=== PATIENT | female | born 1985 | race Two or more races ===

== ENCOUNTER 2017-03-30 14:58 | Emergency (ER) | payer SELFPAY ==
[2017-03-30 15:37] VITALS: BP 122/69; PULSE 91; TEMP 98.6; BMI 20.1
[2017-03-30 17:23] LABS: BASOPHIL 0.2 % (0-2.0); EOSINOPHIL 0.7 % (0-4.5); MCHC 31.5 g/dl (32.0-36.0); MEAN PLT VOLUME 9.4 fl (7.5-11.1); NEUTROPHILS 59.1 % (42.8-82.8); RDW 20.8 % (11.6-15.6); WHITE BLOOD COUNT 4.1 K/mm3 (4.0-10.0)
[2017-03-30 17:26] LABS: URINE APPEARANCE CLEAR; URINE BILIRUBIN NEGATIVE (NEGATIVE); URINE BLOOD NEGATIVE (NEGATIVE); URINE COLOR LTYELLOW; URINE GLUCOSE (UA) NEGATIVE (NEGATIVE); URINE KETONE 1+ (NEGATIVE); URINE LEUK ESTERASE NEGATIVE (NEGATIVE); URINE NITRITE NEGATIVE (NEGATIVE); URINE PROTEIN NEGATIVE (NEGATIVE); URINE UROBILINOGEN NEGATIVE mg/dL (0.2-1.0)
[2017-03-30] MEDS ORDERED: ACETAMINOPHEN WITH CODEINE 300MG/30MG TABLET PO ONE (17:26)
[2017-03-30 17:30] LABS: MCH 17.6 pg (25.7-33.7)
[2017-03-30 18:00] LABS: ALBUMIN 3.5 g/dl (3.4-5.0); ANION GAP 8 (8-16); BILIRUBIN,TOTAL 0.5 mg/dL (0.2-1.0); CALCIUM 10.1 mg/dL (8.5-10.1); CO2 27 mmol/L (21-32); CREATININE 0.2 mg/dL (0.55-1.02); GLUCOSE,RANDOM 77 mg/dL (74-106); SGOT/AST 36 U/L (15-37); SGPT/ALT 27 U/L (12-78)
[2017-03-30 18:16] LABS: ALK PHOS 68 U/L (45-117); TOT PROT 7.6 g/dl (6.4-8.2)
[2017-03-30] MEDS ORDERED: ACETAMINOPHEN 325 MG TABLET (FP) PO PRN (18:16)
[2017-03-30] MEDS: MAG HYDROX/AL HYDROX/SIMETH 30 ML UNIT-DOSE CUP PO ONE ×2 (18:17→18:31)
[2017-03-30] MEDS ORDERED: ACETAMINOPHEN 325 MG TABLET (FP) ONE (18:19)
[2017-03-30] MEDS ORDERED: MAG HYDROX/AL HYDROX/SIMETH 30 ML UNIT-DOSE CUP ONE (18:19)
--- NOTE | 2017-03-30 18:35 | PDOC ---
History of Present Illness - General Chief Complaint: Pain Stated Complaint: ABD PAIN Time Seen by Provider: 03/30/17 15:10 - History of Present Illness Initial Comments: 03/30/17 18:18 31 yo F with no significant pmh who presents with abdominal pain. Pt. is Turkmen speaking and to assist in report. Reports 1 hour duration of midline upper and lower abdominal pain that has been sharp, unremitting, and progressive. Pain is aggravated with pressure and movement, and not relieved with OTC Tylenol x1. Accompanied with bilious emesis x 6 within 24 hours. Denies blood in vomitus, or chest pain. Denies constipation/diarrhea, blood in stool, SOB, HOWE, blurry vision, dizziness, back pain. Pt. is [id number] with LMP 01/31, at 8w2d [place] and [facility] ( 11/07/2017) confirmed by [facility]. She denies vaginal bleeding, itching, burning, or discharge. Denies h/o STI's, alcohol, tobacco, or illicit drug use. Past History - Past Medical History Allergies/Adverse Reactions: Allergies Allergy/AdvReac Type Severity Reaction Status Date / Time No Known Allergies Allergy Verified 03/30/17 15:30 Home Medications: Ambulatory Orders NK [No Known Home Medication] 03/30/17 Anemia: Yes Other medical history: - Reproductive History Is Patient Now?: Yes (#): 5 Para: 3 - Psycho/Social/Smoking Cessation Hx Anxiety: No Suicidal Ideation: No Smoking History: Never smoked Have you smoked in the past 12 months: No Information on smoking cessation initiated: No Hx Alcohol Use: No Drug/Substance Use Hx: No Substance Use Type: None Review of Systems - Review of Systems Comments:: 03/30/17 18:36 GENERAL/CONSTITUTIONAL: No fever or chills. No weakness. HEAD, EYES, EARS, NOSE AND THROAT: No change in vision. No ear pain or discharge. No sore throat. CARDIOVASCULAR: No chest pain or shortness of breath RESPIRATORY: No cough, wheezing, or hemoptysis. GASTROINTESTINAL: + Abdominal pain, nausea, and vomiting, diarrhea or constipation. GENITOURINARY: No dysuria, frequency, or change in urination. MUSCULOSKELETAL: No joint or muscle swelling or pain. No neck or back pain. SKIN: No rash NEUROLOGIC: No headache, vertigo, loss of consciousness, or change in strength/ sensation. ENDOCRINE: No increased thirst. No abnormal weight change HEMATOLOGIC/LYMPHATIC: No anemia, easy bleeding, or history of blood clots. ALLERGIC/IMMUNOLOGIC: No hives or skin allergy. *Physical Exam - Vital Signs Last Vital Signs Temp Pulse Resp BP Pulse Ox 98.6 F 91 H 18 122/69 100 03/30/17 14:58 03/30/17 14:58 03/30/17 14:58 03/30/17 14:58 03/30/17 14:58 - Physical Exam Comments: 03/30/17 18:37 GENERAL: Awake, alert, and fully oriented, in no acute distress HEAD: No signs of trauma, normocephalic, atraumatic EYES: PERRLA, EOMI, sclera anicteric, conjunctiva clear ENT: Auricles normal inspection, hearing grossly normal, nares patent, oropharynx clear without exudates. Moist mucosa NECK: Normal ROM, supple, no lymphadenopathy, JVD, or masses LUNGS: No distress, speaks full sentences, clear to auscultation bilaterally HEART: Regular rate and rhythm, normal S1 and S2, no murmurs, rubs or gallops, peripheral pulses normal and equal bilaterally. ABDOMEN: Diffuse TTP in lower and upper quadrants. Soft, nontender, normoactive bowel sounds. No guarding, no rebound. No masses. Negative peña, psoas, and rovsing sign. EXTREMITIES: Normal inspection, Normal range of motion, no edema. No clubbing or cyanosis. NEUROLOGICAL: Cranial nerves II through XII grossly intact. Normal speech, normal gait, no focal sensorimotor deficits SKIN: Warm, Dry, normal turgor, no rashes or lesions noted. ED Treatment Course - LABORATORY CBC & Chemistry Diagram: 03/30/17 16:41 03/30/17 16:41 - ADDITIONAL ORDERS Additional order review: Laboratory Results 03/30/17 03/30/17 17:05 16:41 Sodium 135 L Potassium 4.7 Chloride 100 Carbon Dioxide 27 Anion Gap 8 BUN 10 Creatinine 0.2 L Creat Clearance w eGFR > 60 Random Glucose 77 Calcium 10.1 Total Bilirubin 0.5 AST 36 ALT 27 Albumin 3.5 Lipase 124 Urine Color Ltyellow Urine Appearance Clear Urine pH 6.0 Urine Protein Negative Urine Glucose (UA) Negative Urine Ketones 1+ H Urine Blood Negative Urine Nitrite Negative Urine Bilirubin Negative Urine Urobilinogen Negative Ur Leukocyte Esterase Negative 03/30/17 16:41 RBC 5.30 H MCV 56.0 L MCHC 31.5 L RDW 20.8 H MPV 9.4 Neutrophils % 59.1 Lymphocytes % 28.6 Monocytes % 11.4 H Eosinophils % 0.7 Basophils % 0.2 - RADIOLOGY Radiology Studies Ordered: Category Date Time Status TRANSVAGINAL US PREG [US] Stat Ultrasound 03/30/17 16:54 Ordered - Medications Given in the ED: ED Medications Discontinued Medications Generic Name Dose Route Start Last Admin Trade Name Freq PRN Reason Stop Dose Admin Al Hydroxide/Mg Hydroxide 30 ml 03/30/17 17:26 03/30/17 18:17 Mylanta Oral Suspension - PO 03/30/17 17:27 30 ml ONCE ONE Administration Medical Decision Making - Medical Decision Making 03/30/17 18:43 31 yo [id number] at 8w2d (U/S) with no significant pmh who presents with diffuse abdominal pain. Pain onset within last 24 hours. Possible cholithiasis, ectopic , appendicitis, or ovarian cyst/torsion. Low suspicion for cholithiasis d/t absent peña sign. Pt. has predominant TTP in lower left and right abdomen which is suspicious for ovarian pathology vs. ectopic. vs appendicitis. Denies vaginal bleeding; low suspicion for threatened or spontaneous . ED course: CBC, CMP, UA, BHCG Transvaginal U/S Abdominal U/S Acetaminophen 325 PRN Mag Hydrox /Al Hydrox *DC/Admit/Observation/Transfer Diagnosis at time of Disposition: Qualifiers: Weeks of gestation: 9 weeks Qualified Code(s): Z3A.09 - 9 weeks gestation of - Discharge Dispostion Disposition: HOME Condition at time of disposition: Improved Admit: No - Patient Instructions Printed Discharge Instructions: DI for -- Discomforts and Remedies Print Language: [place] - Attestations Physician Attestion: 03/30/17 19:28 I, Dr. Moses Kruger, attest that this document has been prepared under my direction and personally reviewed by me in its entirety. I further attest, that it accurately reflects all work, treatment, procedures and medical decision -making performed by me.
[2017-03-30 18:50] LABS: PLATELET COUNT 271 K/MM3 (134-434)
[2017-03-30 18:51] LABS: ANISOCYTOSIS 2+; HYPOCHROMIA 2+; MICROCYTOSIS 2+; OVALOCYTES 1+; PLATELET ESTIMATE ADEQUATE (NORMAL); POIKILOCYTOSIS 1+; POLYCHROMASIA 1+; TARGET CELLS 1+
--- NOTE | 2017-03-30 19:21 | PDOC ---
Attending Attestation - Resident Resident Name: Moses Kruger - HPI HPI: 03/30/17 19:20 31-year-old female 5 para 3 presents with some abdominal pain. She states that she is and has not had any care this time. She is applying for insurance to get care. G5 para 3 03/30/17 19:21 - Physicial Exam PE: 03/30/17 19:21 Well-nourished well-developed 31-year-old female complaining of some abdominal discomfort. Abdominal exam with no guarding, no rebound, no right lower quadrant tenderness Lungs are clear to auscultation bilaterally CVS regular rate and rhythm S1, S2 Pelvic patient denied any vaginal bleeding Extremities no deformity, no pitting edema Neuro no focal neural deficits. Patient is alert and oriented, is ambulatory - Medical Decision Making 03/30/17 19:23 Pelvic ultrasound shows single live IUP 8 weeks 3 days, heart tones 164. Urinalysis negative for infection. She has a mild anemia that appears to be chronic. Impression early . Plan follow up at clinic at [facility]
== END 2017-03-30 19:39 | disposition home or self-care (01) ==
LOC: JER 14:58
DX: O26.891 Other specified pregnancy related conditions, first trimester (principal); R10.84 Generalized abdominal pain; Z3A.09 9 weeks gestation of pregnancy
CPT/HCPCS: 36415; 76801-TC; 80053; 81003; 83690; 84702; 85025; 99283-25